=== PATIENT | male | born 1935 | race Caucasian/White ===

== ENCOUNTER → 2016-12-11 | Outpatient (CLI) | payer MEDICARE, OTHER ==
[2016-12-11 09:43] LABS: BASOPHILS % (AUTO) 1 % (0-2); EOSINOPHILS # (AUTO) 0.2 10^3uL; EOSINOPHILS % (AUTO) 3 % (0-4); LYMPHOCYTES # (AUTO) 1.2 X10^3; MEAN CORPUSCULAR HGB CONC 34.9 g/dL (31.0-37.0); MEAN CORPUSCULAR VOLUME 92 FL (80-100); MEAN PLATELET VOLUME 9.5 FL (6.0-9.5); MONOCYTES # (AUTO) 0.7 X10^3; MONOCYTES % (AUTO) 13 % (3-11); NEUTROPHILS # (AUTO) 3.7 X10^3; NEUTROPHILS % (AUTO) 63 % (51-67); PLATELET COUNT 165 10^3uL (150-450); WHITE BLOOD COUNT 5.77 10^3uL (4.0-11.0)
[2016-12-11 09:47] LABS: BILIRUBIN,URINE Negative (Negative); CLARITY,URINE Clear; COLOR,URINE Yellow; GLUCOSE, URINE (UA) Negative (Negative); LEUKOCYTE ESTERASE ,URINE Negative (Negative); UROBILINOGEN,URINE 0.2 mg/dL (0.2-1.0)
[2016-12-11 10:28] LABS: ALBUMIN 4.3 g/dL (3.4-5.0); ANION GAP 15.1 MEQ/L (3-15); CALCULATED IONIZED CALCIUM 4.1 mg/dL (3.8-4.6); TOTAL PROTEIN 7.3 g/dL (6.4-8.5)
== END ==
LOC: RAD 09:29
PROVIDERS: ATTEND Family Medicine
DX: R06.00 Dyspnea, unspecified (principal); I49.8 Other specified cardiac arrhythmias; R79.89 Other specified abnormal findings of blood chemistry; D50.8 Other iron deficiency anemias; N39.0 Urinary tract infection, site not specified; E13.65 Other specified diabetes mellitus with hyperglycemia; E03.4 Atrophy of thyroid (acquired); M81.0 Age-related osteoporosis without current pathological fracture; J84.89 Other specified interstitial pulmonary diseases
CPT/HCPCS: 36415; 71020; 80053; 81003; 82306; 83036; 84436; 84443; 85025; 93005

== ENCOUNTER → 2017-01-02 | Outpatient (CLI) | payer MEDICARE, OTHER ==
[2017-01-02 15:23] LABS: CLARITY,URINE Turbid; COLOR,URINE Red; GLUCOSE, URINE (UA) Negative (Negative); LEUKOCYTE ESTERASE ,URINE Negative (Negative); UROBILINOGEN,URINE 0.2 mg/dL (0.2-1.0)
[2017-01-02 15:48] LABS: BILIRUBIN,URINE 1+ (Negative)
[2017-01-02 15:56] LABS: RBC,URINE TNTC /HPF; URINE CENTRIFUGED VOLUME 12 mL
--- NOTE | 2017-01-02 16:56 | Diagnostic Imaging Report ---
PROCEDURE: CT abdomen and pelvis without contrast. TECHNIQUE: Multiple contiguous axial images were obtained through the abdomen and pelvis without the use of intravenous contrast. INDICATION: Hematuria, history of nephrolithiasis. COMPARISON: 07/19/2015. FINDINGS: There are no opaque kidney stones. There is no hydroureteronephrosis and no appreciable opaque stone along the visualized course of either ureter. No stones within the lumen of the urinary bladder. Some heterogeneous enlargement of the prostate indents the bladder base eccentric to the left. This does not appear appreciably changed from the study of July 2015. There is no bowel, biliary, or urinary tract obstruction. The atherosclerotic abdominal aorta is nonaneurysmal. Left hepatic lobe cysts, unchanged. No biliary dilatation. The gallbladder is surgically absent. The spleen, adrenals, and pancreas are unremarkable. There is no ascites, abscess, hematoma, or fluid collection. There is no focal inflammatory process. The osseous structures and the lung bases are nonacute. IMPRESSION: Unobstructed kidneys, nonfocal. No opaque stone disease. Prostatic heterogeneity and enlargement with its unchanged mass effect upon the urinary bladder base, stable from the prior. No acute-appearing abnormality. Dictated by: Dictated on workstation # [id number]
== END ==
LOC: LAB 13:53
PROVIDERS: ATTEND Family Medicine
DX: N13.2 Hydronephrosis with renal and ureteral calculous obstruction (principal); N39.0 Urinary tract infection, site not specified; R31.0 Gross hematuria
CPT/HCPCS: 36415; 74176; 81003; 81015; 84153; 88112